=== PATIENT | male | born 1995 | race Caucasian/White ===

== ENCOUNTER 2023-04-13 10:07 | Observation (INO) ==
--- NOTE | 2023-04-08 10:05 | Anesthesiology Consultation ---
Date of Service April 08, 2023 Assessment & Plan (1) Encounter for pre-operative examination: Chart Review Chart Review: Acceptable Risk for Surgery and Patient NOT seen in Pre Admission Testing -COVID screening: Per PAT nursing assessment on 04/04/23. No known COVID-19 positive contacts or current COVID-19 related symptoms. Travel screen negative. Patient vaccinated for Covid. At surgeon discretion if preop Covid testing being done. History Surgery Operation Date: 04/13/23 11:30 Proposed Procedures p Robotic Laparoscopic Left Inguinal Hernia Repair Possible Right Side - Zach Haddad DO, FACS Height/Weight Height: 5 ft 8 in Weight: 83.915 kg Allergies Allergy/AdvReac Type Severity Reaction Status Date / Time No Known Allergies Allergy Verified 04/04/23 14:01 Medications Home Medications Medication Instructions Recorded Confirmed Last Taken No Known Home Medications 03/22/23 04/04/23 Unknown Past Medical History Medical History (Updated 04/08/23 @ 10:04 by Vernell Simeon PA-C) Hypercholesteremia Per records - diet controlled Reducible right inguinal hernia Past Family History Family History Father Diabetes Other No family history of adverse response to anesthesia Past Surgical History Surgical History No history of previous surgery Social History Smoking Status: Never smoker Do You Dip or Chew Tobacco: No Hx Alcohol Use: Yes alcohol intake frequency: holidays/special occasions only Hx Substance Use: No substance use type: does not use Testing Laboratory Results 03/25/23= WBC: 5.8 H/H: 16.1/47.9 PLATELETS: 231 SODIUM: 140 POTASSIUM: 4.0 CHLORIDE: 102 CO2: 29 BUN: 21.0 CREATININE: 1.0 GLUCOSE: 104
[~2023-04-13 10:07] MED LIST: LACTATED RINGER'S 1,000 ML IV SCH; ceFAZolin 2000MG 2,000 MG/15 ML SYR IV SCH
[2023-04-13] MEDS ORDERED: MIDAZOLAM HCL 1 MG/ML 2ML VIAL ONE (10:14)
[2023-04-13] MEDS ORDERED: ROCURONIUM BROMIDE 10 MG/ML 5 ML VIAL IV ONE (10:14)
[2023-04-13] MEDS ORDERED: PROPOFOL IV EMULSION 10 MG/ML 20 ML VIAL IV ONE (10:14)
[2023-04-13] MEDS ORDERED: SUGAMMADEX SODIUM 200 MG/2 ML VIAL IV ONE (10:14)
[2023-04-13] MEDS ORDERED: LIDOCAINE 2% 2 ML VIAL/AMP(20MG/ML) INFIL ONE (10:14)
[2023-04-13] MEDS ORDERED: fentaNYL citrate PF 100 MCG/2 ML VIAL ONE (10:14)
[2023-04-13] MEDS ORDERED: DEXAMETHASONE SOD INJ 4 MG/ML VIAL ONE (10:14)
[2023-04-13] MEDS ORDERED: ONDANSETRON INJ 2 MG/ML 2 ML VIAL ONE (10:15)
[2023-04-13] MEDS ORDERED: ONDANSETRON INJ 2 MG/ML 2 ML VIAL IV PRN ×2 (12:08→15:30)
[2023-04-13] MEDS ORDERED: ATROPINE SULFATE 0.1 MG/ML 10ML SYR IV PRN (12:08)
[2023-04-13] MEDS ORDERED: KETOROLAC 30 MG/ML VIAL IV PRN (12:08)
[2023-04-13] MEDS ORDERED: PROMETHAZINE HCL 6.25 MG in SODIUM CHLORIDE 0.9% 50 ML IV PRN (12:08)
[2023-04-13] MEDS ORDERED: LABETALOL HCL IV 5 MG/ML 20ML IV PRN (12:08)
--- NOTE | 2023-04-13 13:36 | History & Physical Bridge Note ---
Date of Service April 13, 2023 History & Physical Bridge Note I have examined the patient, reviewed the History & Physical and in the interval since the performance of the History & Physical I have noted the following changes of clinical significance: no changes noted
[2023-04-13] MEDS ORDERED: BUPIVACAINE 0.5 % 5 MG/1 ML MPF 30ML VIAL ONE (13:47)
[2023-04-13] MEDS ORDERED: SODIUM CHLORIDE 0.9% 1000ML 1,000 ML IV SCH (15:30)
[2023-04-13] MEDS ORDERED: MoRPHine SULFATE 4 MG/ML 1 ML CARP\\VIAL IV PRN (15:30)
[2023-04-13] MEDS ORDERED: MoRPHine SULFATE 2 MG/ML CARP IV PRN (15:30)
[2023-04-13] MEDS ORDERED: oxyCODONE/ACETAMINOPHEN 5mg/325mg TAB PO PRN ×2 (15:30)
--- NOTE | 2023-04-13 15:30 | Operative Report ---
PG Post Operative Report Pre & Post Diagnosis Operation Date: 04/13/23 11:30 Pre-Op Diagnosis: Left Inguinal Hernia Post-Op Diagnosis: Incarcerated indirect left Inguinal Hernia I identified the patient and participated in the time-out.: Yes Procedure Operation Date: 04/13/23 11:30 Actual Procedures Robotic assisted laparoscopic left inguinal hernia repair (Left) - Zach Haddad DO, YANE Surgeon Zach Haddad DO, YANE Managed Care Coordinator None Estimated Blood Loss 5 Findings Consistent with Post-Op Diagnosis Incarcerated left indirect inguinal hernia containing omentum. Omentum reduced. Hernia reduced, ProGrip mesh placed in the left. Specimens None Anesthesia Type General Complications none Disposition Accompanied Patient To Recovery: No Disposition: Recovery Room Indications 27-year-old male with symptomatic left inguinal hernia, plan for robotic assisted laparoscopic left inguinal hernia repair, possible right. The risks of the procedure were discussed, all questions were answered, and the patient agreed to proceed with surgery as planned. Description of Procedure The patient was properly identified, consented, and taken to the operating room where he was placed in the supine position. General endotracheal anesthesia was induced. SCDs and a safety belt were placed. A palomino catheter was placed. Preoperative antibiotics were administered. The patient's groins and abdomen were prepped and draped in the standard sterile fashion. Surgical timeout was performed and all parties were in agreement that this was the correct patient and procedure to be performed and we continued as planned. An incision was made in the upper abdomen just off of the midline. The Veress needle was inserted and saline drop test confirmed entry into the abdomen. The abdomen was insufflated with carbon dioxide which the patient tolerated without incident. The Veress needle was removed and the abdomen was entered using the Optiview technique and a 5 mm camera. The introducer was removed and the camera reinserted. No damage from initial trocar placement or Veress needle placement was identified. There were no abnormalities in the 4 quadrants of the abdomen. A incarcerated indirect inguinal hernia was identified on the left, and there was no inguinal hernia on the right. 8 mm robotic ports were then placed in the right upper quadrant and left upper quadrant. The patient was placed in the Trendelenburg position. The robot was docked, and the camera and instruments were inserted. The incarcerated omentum was reduced. The peritoneum was incised approximately 6 cm above the defect, starting at the medial umbilical ligament and working laterally. The peritoneal flap was raised. Dissection began laterally at the anterior superior iliac spine. Wang's ligament was then dissected medially. The cord structures were circumferentially dissected. A large indirect inguinal hernia defect was identified. The peritoneum was reduced and the cord was skeletonized. Progrip mesh was placed on the left and covered the direct, indirect, and femoral spaces. The peritoneal flap was then closed with a r unning absorbable barbed suture. Redundant hernia sac was incorporated into the closure. The robot was undocked and the ports were removed. The skin of all port sites were closed with 4-0 Monocryl subcuticular suture, and Dermabond was placed over the incisions. The patient was extubated in the operating room and taken to the PACU for recovery without apparent incident. Any air in the scrotum was reduced, and the testicles were confirmed to be in the scrotum. All sponge, instrument, and needle counts were correct at the conclusion of the procedure. The patient tolerated the procedure well. I attest to the content of the Intraoperative Record and any orders documented therein. Any exceptions are noted below.
[2023-04-13] MEDS: fentaNYL citrate PF 100 MCG/2 ML VIAL IV PRN ×2 (16:10→16:18)
--- NOTE | 2023-04-13 17:07 | XRay Report ---
XR chest 1V portable HISTORY: Shortness of breath. questionable pulmonary edema COMPARISON: None. FINDINGS: No pneumothorax. No pleural effusions. The cardiac silhouette is top normal in size. There is mild central pulmonary vascular congestion without overt edema. No focal lung consolidations to gloria ggest pneumonia. No acute fractures identified. IMPRESSION: Mild central pulmonary vascular congestion without overt edema. ACT 112: Negative or not required by law. Electronically signed by: Ramiro Prakash M.D. 04/13/2023 5:05 PM
--- NOTE | 2023-04-13 18:03 | Anesthesiology Progress Note ---
Date of Service April 13, 2023 Anesthesia Post Procedure Vital Signs Vital Signs: Temp Pulse Pulse Resp BP Pulse Ox O2 Del Method 04/13/23 17:50 82 16 132/80 97 Nasal Cannula 04/13/23 17:40 87 16 126/80 92 Room Air 04/13/23 17:30 80 18 123/76 94 Nasal Cannula 04/13/23 17:20 72 14 122/81 94 Nasal Cannula 04/13/23 17:10 75 20 123/78 95 Nasal Cannula 04/13/23 17:00 36.8 C 76 20 128/77 95 Nasal Cannula 04/13/23 16:50 74 16 126/80 98 Nasal Cannula 04/13/23 16:40 60 14 119/74 94 Nasal Cannula 04/13/23 16:30 65 18 125/75 95 Nasal Cannula 04/13/23 16:20 72 20 134/83 97 Nasal Cannula 04/13/23 16:10 74 20 132/85 97 Oxymask 04/13/23 16:00 77 16 133/89 97 Oxymask 04/13/23 15:50 75 22 121/85 97 Oxymask 04/13/23 15:40 88 20 130/76 95 Oxymask 04/13/23 15:37 36.0 C L 75 19 140/71 82 L Oxymask 04/13/23 10:35 36.9 C 81 18 150/97 H 98 Room Air O2 Flow Rate 04/13/23 17:50 2 04/13/23 17:40 04/13/23 17:30 2 04/13/23 17:20 2 04/13/23 17:10 2 04/13/23 17:00 2 04/13/23 16:50 2 04/13/23 16:40 2 04/13/23 16:30 2 04/13/23 16:20 2 04/13/23 16:10 3 04/13/23 16:00 9 04/13/23 15:50 15 04/13/23 15:40 15 04/13/23 15:37 15 04/13/23 10:35 Pain Intensity Abdomen: Pain Intensity: 2 Transfer of Care Handoff Completed per policy Notes Mental Status: alert / awake / arousable and participated in evaluation Patient Amnestic to Procedure: Yes Nausea / Vomiting: adequately controlled Pain: adequately controlled Airway Patency, RR, SpO2: see Notes below BP & HR: stable & adequate Hydration State: stable & adequate Anesthetic Complications: see Notes below and Pt Satisfied with anesthetic care Notes: Resumed care of this in recovery. Per report from prior anesthesia provider, patient was in recovery with oral and nasal airway and appeared to obstruct. Upon awakening, patient was really unable to be successfully weaned from oxygen (required 2-4L of NC). His lungs sounded clear to auscultation and patient had not been aggressively treated with narcotic medications. He was given incentive spirometry and CXR was completed. It showed mild central pulmonary vascular con gestion. My concern was that patient might have had some mild degree of obstructive pulmonary edema. Treatment is largely supportive and I do not believe patient's condition warrants a dose of lasix. I felt it was best that patient be admitted overnight for observation. Attending physician made aware.
[2023-04-13] MEDS ORDERED: diphenhydrAMINE 50 MG/ML VIAL IV PRN (19:54)
[2023-04-13] MEDS: KETOROLAC TROMETHAMINE 15 MG/ML VIAL IV SCH (20:27)
[2023-04-14] MEDS: KETOROLAC TROMETHAMINE 15 MG/ML VIAL IV SCH ×2 (01:53→08:24)
--- NOTE | 2023-04-14 11:07 | Surgery Progress Note ---
Date of Service April 14, 2023 Assessment & Plan (1) History of robot-assisted repair of left inguinal hernia: Plan: POD #1 robotic left inguinal hernia repair, oxygen requirement resolved DC to home Return precautions given, wound care instructions and activity restrictions reviewed Follow-up as scheduled, call with questions or concern (2) Postoperative hypoxia: Admission and Anticipated Discharge Date Admission Date: April 13, 2023 Subjective POD#1 robotic RIH repair, admitted for mild post op oxygen requirement. Off O2, no SOB. Some pain with urinating, no other issues. Physical Exam Constitutional: WD/WN, vitals as above Respiratory: normal respiratory effort, lungs clear to auscultation Gastrointestinal (Abdomen): normal bowel sounds, soft, nontender, no hepatosplenomegaly Inspection/Auscultation: + abdominal surgical incision (no infection) Percussion/Palpation: no hernia Results & Data Vital Signs (Past 12 Hours) Vital Signs Temp Pulse Pulse Resp BP BP Pulse Ox 04/14/23 10:31 36.6 C 76 69 16 115/68 122/70 99 04/14/23 07:31 36.6 C 69 16 115/68 99 04/14/23 02:00 36.5 C 73 16 107/68 95 O2 Del Method 04/14/23 10:31 04/14/23 07:31 Room Air 04/14/23 02:00 Room Air PG Care Time/CCT Total # of Minutes Spent Total Time Spent with Patient: Total time spent is greater than 50% in coordination of care (as documented) at patient's floor/unit and/or counseling patient: Coding Level of Care Code None Diagnoses History of robot-assisted repair of left inguinal hernia Z98.890; Z87.19 Postoperative hypoxia R09.02; Z98.890
--- NOTE | 2023-04-15 13:44 | Discharge Summary ---
Date of Service April 14, 2023 Principal Diagnosis postoperative hypoxia history of robot assisted repair of left inguinal hernia Discharge Exam awake/alert Respiratory normal respiratory effort saturating well on room air Gastrointestinal (Abdomen) Inspection/Auscultation: + abdominal surgical incision (c/d/i without signs of infection); abdomen not distended Percussion/Palpation: abdomen soft; abdomen nontender Discharge Data Allergies Allergy/AdvReac Type Severity Reaction Status Date / Time No Known Allergies Allergy Verified 04/13/23 10:33 Procedures Performed Operation Date: 04/13/23 11:30 Actual Procedures p Robotic Laparoscopic Inguinal Hernia Repair with mesh-LEFT(Left) - Zach Haddad DO, FACS Hospital Course (1) Postoperative hypoxia: This is a 27yM who presented to the [facility] on 04/13/23 for an elective robotic left inguinal hernia repair with Dr. Haddad. The patient tolerated the procedure well, however post op he was noted to be hypoxic with inability to be weaned from O2 in the recovery unit. He was admitted overnight for observation. CXR was obtained and showed some mild central pulmonary congestion. He was able to be successfully able to be weaned to room air without issues by POD#1. His diet was advanced as tolerated and pain was controlled on prn pain medication. On 04/14 he was deemed stable for discharge to home with plans to follow up in clinic within 2 weeks. (2) History of robot-assisted repair of left inguinal hernia: Total Time Total Time Spent Total Time Spent (In Minutes): 10 Discharge Plan Discharge Items Patient Disposition: Home - Self-Care Reason For Visit: POST OP HYPOXIA Discharge Diagnosis: left inguinal hernia repair Condition on Discharge: Good Activity: Per Instructions section Activity Comment: No heavy lifting or strenuous activity for 4 weeks Lifting: No more than 25 pounds Lifting Comment: No lifting greater than 20 to 25 pounds for 4-week Bathing Comment: may shower starting 04/14/23; no soaking in tubs/pools x2 weeks Exercise/Sports: Gradually increase as tolerated Exercise Comment: No strenuous activity for 4 weeks Non-emergency contact: Surgeon Call non-emergency contact if: you have any medication questions, your symptoms worsen, your pain is not controlled, your pain is concerning for you, you have a fever, your temperature is above 101.5, your wound has increased redness, your wound has increased drainage and your wound pain has increased Follow-up/Referrals: Jagdish Moreno [Primary Care Provider] - Zach Haddad, YANE FIERRO [Physician] - 04/28/23 10:30 am (Please call to schedule follow up in clinic within 2 weeks ) Diet: Regular Addtl Attending Provider Instructions: You may ice your groin(s) on and off alternating every 20 minutes as needed to help with pain and swelling over the next few days. You may purchase Ibuprofen over the counter for additional pain control if needed. Take per manufacturers instructions Pending Studies at Discharge: No Stand-Alone Forms: [facility] [place] [employer], Pain - Opioid Pain Management Medications and DC Order Prescriptions: New oxycodone-acetaminophen [Percocet] 5-325 mg tablet 1 - 2 tab PO Q6H PRN (Reason: pain) Qty: 14 0RF No Action No Known Home Medications Discharge Orders: Discharge Order (Routine); Ordered 04/14/23 Ordered By: Zach Foster/Other Patient Handouts: DVT Post Op Prevention Admission Data Admit Date/Time: 04/13/23 18:05 Attending Provider: Zach Haddad Admit Provider: Zach Haddad Primary Care Provider: Jagdish Moreno Other Interventions: Discharge Summary Assessment (RN) Last Done: 04/14/23 10:31 Coding Diagnoses Postoperative hypoxia R09.02; Z98.890 History of robot-assisted repair of left inguinal hernia Z98.890; Z87.19
== END 2023-04-14 12:50 | disposition home or self-care (01) ==
LOC: 3N 10:07 → ASU 10:07